=== PATIENT | male | born 1980 | race African-American/Black ===

== ENCOUNTER 2024-07-22 21:12 | Emergency (ER) | payer SELFPAY ==
[~2024-07-22] VITALS: Ht 172.7 cm; Wt 86.2 kg
[2024-07-22] MEDS ORDERED: AMOX-CLAV 875-1 EACH PO (21:41)
[2024-07-22] MEDS ORDERED: Amoxicillin/Clavulanate Pota 875 MG TAB PO ONE (21:45)
[2024-07-22] MEDS ORDERED: Acetaminophen/Hydrocodone HP 10/325 PO ONE (21:45)
== END 2024-07-22 21:56 | disposition home or self-care (01) ==
LOC: ED 21:12
DX: K08.89 Other specified disorders of teeth and supporting structures (principal); R22.0 Localized swelling, mass and lump, head